=== PATIENT | female | born 1960 | race Caucasian/White ===

== ENCOUNTER 2023-05-28 13:47 | Inpatient (IN) | payer OTHER, SELFPAY ==
--- NOTE | 2023-05-28 14:56 | NUR.NOTE ---
Nursing Note: Undated fentanyl patch removed from left arm and discarded into drug disposal container. Fentanyl waste witnessed by day care assistant, Kelly MCDONOUGH.
[2023-05-28] MEDS: Scopolamine 1 MG/3 DAYS PATCH TD (15:22)
[2023-05-28] MEDS: fentaNYL 25 MCG PATCH TD (15:23)
[2023-05-28 15:45] VITALS: BP 79/51; PULSE 76; RESP 14; TEMP 35.9; O2SAT 93
[2023-05-28] MEDS: Glycopyrrolate 0.2 MG/1 ML VIAL 0.1 MG IVP ×2 (16:45→21:37)
[2023-05-28] MEDS: Normal Saline Flush 10 ML SYR IVP ×5 (16:46→23:29)
[2023-05-28] MEDS: HYDROmorphone 2 MG/ML SYR IVP ×3 (18:02→22:07)
[2023-05-28] MEDS: LORazepam 2 MG/ML VIAL IV/SC ×3 (19:55→23:16)
[2023-05-28] MEDS: Furosemide 20 MG/2 ML VIAL IVP (21:37)
[2023-05-28] MEDS: MORPHine 4 MG/ML SYR IV/SC (23:30)
[2023-05-29] MEDS: Normal Saline Flush 10 ML SYR IVP ×5 (01:14→19:15)
[2023-05-29] MEDS: MORPHine 4 MG/ML SYR IV/SC ×8 (01:14→23:00)
[2023-05-29] MEDS: LORazepam 2 MG/ML VIAL IV/SC ×5 (02:46→21:18)
[2023-05-29] MEDS: Glycopyrrolate 0.2 MG/1 ML VIAL 0.1 MG IVP ×3 (05:01→19:15)
--- NOTE | 2023-05-29 11:30 | W.PM.HP.N ---
Date of service: 05/28/23 Time of Service: 13:30 Assessment and Plan Assessment and plan (1) THAO (nonalcoholic steatohepatitis): Status: Acute (2) Hospice care patient: Status: Acute (3) Edema: Status: Acute (4) Anxiety: Status: Chronic (5) Confusion: Status: Acute (6) Dying care: Status: Acute Assessment and plan: Ms. Mcleod is a 62 y/o F hospice patient, admitted to [facility] for respite care she will likely remain in hospital thru EOL pain, anxiety, confusion all controlled at time of admission, continue current meds w/IV access preferred d/t refusing/unable to take oral meds at this time - continue fentanyl patches; added hydromorphone for pain - morphine added for anticipated dyspnea 2/2 increased edema d/t liver disease and suspected hepatrorenal involvement, edema likely a sxs of EOL; scopolamine, atropine, glycopyrrolate, hyoscyamine all ordered; furosemide 20mg IVP BID PRN ordered History of Present Illness Narrative: Ms. cMleod is a 62 y/o F hospice patient, admitted to [facility] for respite; hospice diagnosis THAO; over the weekend Shani had increased agitation, confusion, pain and anxiety; she was seen daily by hospice nurses and her sxs were appropriately managed; her son and primary caregiver was unable to care for himself during this time and requires respite. she will be admitted for respite, potentially through the end of her life. pain: currently fentanyl 25mcg patches, w/good effect on pain anxiety: managed w/Ativan and Haldol making very little urine breathing non-labored w/periods of apnea edema, increasing, unable to take Lasix confusion: potentially increased, unable/refusing to take lactulose no PO intake x2 days w/3 days of limited intake prior, w/several days of no oral medications she is on comfort measures Review of Systems Narrative: as per HPI PFSH All Active Problems (Updated 05/29/23 @ 11:36 by Chantell Rubio NP) Dying care (Acute) Confusion (Acute) Anxiety (Chronic) Edema (Acute) Hospice care patient (Acute) THAO (nonalcoholic steatohepatitis) (Acute) Social History Smoking/Tobacco Use Status: Unknown Smoking risk assessment performed?: Yes Housing: house Results Last Vital Signs Temp 96.6 F L 08/07/23 15:45 Pulse 76 05/28/23 15:45 Resp 14 05/28/23 15:45 BP 79/51 L 05/28/23 15:45 Pulse Ox 93 05/28/23 15:45 Time Spent Time spent with Patient: 55-74 minutes Time was spent: preparing to see the patient(eg.review tests), obtaining and/or reviewing separately otained hiistory, ordering medications,tests, procedures, referring, communicating with other health healthcare administrative assistant, counseling the patient (family) and care coordination
--- NOTE | 2023-05-29 12:01 | W.PM.PROGNOT ---
Date of Service Date of service: 05/29/23 Time of Service: 11:30 Assessment and Plan Assessment and plan (1) THAO (nonalcoholic steatohepatitis): Status: Acute (2) Hospice care patient: Status: Acute (3) Edema: Status: Acute (4) Anxiety: Status: Chronic (5) Confusion: Status: Acute (6) Dying care: Status: Acute Assessment and plan: Ms. Mcleod is a 62 y/o F hospice patient, admitted to [facility] initially for respite care but appears to be actively dying and will transition to Symptom management today. Her life expectancy is measured in hours to days. Discussed with her son. She is unresponsive. She has not had anything by mouth for 3 days. Her urinary output is decreasing. She appears to be comfortable. Continue PRN medications for increased respiratory secretions. Continue PRN morphine for pain/dyspnea, nursing reports MS working well. She will remain on hospice symptom management for end of life care. Hospice will continue to follow. Subjective Subjective Interval history since last seen: Shani was seen in her hospital room with he son, Andres present. She is unresponsive. She appears to be resting comfortably. Andres reports no PO intake since Sunday, currently day #3 without food or drink. Staff report that she appears comfortable. They are giving PRN medications for increased respiratory secretions. Morphine appears to be working well for pain and dyspnea. Her respirations are snoring. Her urinary output is decreased. Discussed with her son, her life expectancy is measured in hours to days. She will remain at [facility] until she dies. He is concerned about paying for arrangements. CM to assist. Exam Narrative Exam Narrative: General: Middle aged, well-nourished female, laying in bed, unresponsive. Skin is jaundiced. HEENT: normocephalic, atraumatic, eyes closed, mm dry. Cardiovascular: heart sounds regular. respiratory: snoring respirations, irregular. Lungs with rhonchi throughout. GI: +BS, abd soft. Extremities: cool to touch, edema/3rd spacing to all 4 extremities. Scattered areas of ecchymosis to BUEs. Venous stasis skin changes to BLEs. Objective Last Vital Signs Temp 35.9 C L 05/28/23 15:45 Pulse 76 05/28/23 15:45 Resp 14 05/28/23 15:45 BP 79/51 L 05/28/23 15:45 Pulse Ox 93 05/28/23 15:45 Time Spent with Patient Time Spent with Patient: 25-34 minutes Time was spent: preparing to see the patient(eg.review tests), obtaining and/or reviewing separately otained hiistory, referring, communicating with other health child caregiver private home and counseling the patient (family)
--- NOTE | 2023-05-29 12:21 | CMPROGNOTE_ITS ---
Date of service: 05/29/23 Time of Service: 12:21 Care Management Progress Note Progress Note Text Progress Note Text: S/O: CM met with Andres, Shani's son, in the room with Shani, who is unresponsive, and appears comfortable. Andres expressed concern with paying for his mother's , as well as outstanding medical bills. CM provided information regarding support from the state, although the determination of eligibility must happen after a person has passed. Andres stated that he is working with [facility], who is willing to work out a payment plan with him. Andres also stated that he has a gofundme in place to help with the cost. CM discussed the past medical bills with Andres, suggesting that he ask if the facilities have a forgiveness program for medical debt for a loved one. Andres stated that he will look into this. CM encouraged Andres to take care of himself during this difficult time. He stated that he will likely go home this evening, but wants staff to call him with any change. He is very supportive of his mother, and wants to honor her wishes, and be with her as much as possible at the end of her life. CM will continue to follow. A: Shani is a 62 year old female admitted to [facility] on hospice symptom manag ement for THAO. P: Shani will likely remain at [facility] for end of life care, as her son is unable to continue to care for her at home. Hospice providers will be following her and managing her care. Andres is working with [facility] for Shani's final arrangements. CM will continue to support Shani and her family during this difficult time.
--- NOTE | 2023-05-29 14:59 | CHAPLAIN ---
Shani is a hospice patient who was admitted for symptom management. She is unresponsive and will likely stay here through the end of her life. Her son Andres is with her. He told me he plans to stay here, and some other family members may visit. They are from [place], [place]. Shani appears comfortable. Andres said he was told that his mom has hours to days to live. I let him know that solution manager support is always available.
--- NOTE | 2023-05-29 16:01 | PHA.REVIEW2 ---
Pharmacy Admission Review Admission Clinical Review Admission Pharmacy Review: (Updated 05/29/23 @ 11:36 by Chantell Rubio NP) Dying care (Acute) Confusion (Acute) Edema (Acute) Hospice care patient (Acute) THAO (nonalcoholic steatohepatitis) (Acute) Resuscitation Status DNR/DNI Height 5 ft 5 in Weight 280 kg Comments Comments/Follow Ups: Hospice symptom managment. Watch for med changes. Pharmacy Admission Review Renal Dosing Medications needing adjustments: N/A Anticoagulation DVT Prophylaxis: N/A Therapeutic Anticoagulation: N/A Opiate Usage Evaluate Pain Scale/Pains Meds: Reviewed Scheduled Bowel Reg ordered if on Opiates?: No (has PRN meds ordered) Relevant Labs Electrolytes, C-Reactive P, ESR: N/A DM Control DM Control: N/A Cardiac Review BP, HR, EF%: N/A QTc Review QTc: N/A IV to PO Switch IV Medications: Reviewed Home Meds Home Med List reviewed: N/A Current Meds Current Medication Order Review: Intervened (Two PRN IV opioids ordered, asked provider if they had a preference. Per nursing the morphine was more helpful than the hydromorphone for her breathing. Hospice provider d/c'd hydromorphone) Comments Comments/Follow Ups: Hospice symptom managment. Watch for med changes.
[2023-05-30] MEDS: Normal Saline Flush 10 ML SYR IVP (00:10)
[2023-05-30] MEDS: MORPHine 4 MG/ML SYR IV/SC (00:14)
--- NOTE | 2023-05-30 06:27 | NUR.NOTE ---
Nursing Note: RN remained in room with pt throughout shift as family was unable to be present. Pt took last breath just before 0545. Notified CC Rosy Castillo RN. Auscultated lungs for full minute. No audible heart or lung sounds present. No carotid pulse palpable. CC auscultated to confirm time of . Called next of kin, son Andres Yanez and notified of . Removed PIV, lo, scopalamine patch, and fentanyl patch. Patches disposed in pharmacy black box. Witnessed by Rosy Castillo RN, CC. Post mortem hygiene care performed. Son arrived to hospital around 0600. Informed of details of passing and offered support. Allowed son privacy to remain with mother and instructed to use call light if he had any needs, questions, or concerns.
[2023-05-30] MEDS: Patch Removal 1 EACH TD (06:58)
--- NOTE | 2023-05-30 09:05 | W.PM.DDS ---
Date of service: 05/30/23 Time of Service: 05:45 Discharge Plan Disposition Patient Disposition: Discharge Details Reason For Visit: Nonalcoholic Steatohepatitis Admit Date/Time: 05/28/23 13:47 Admit Provider: Kacy Lewis Attending Provider: Kacy Lewis Primary Care Provider: Kacy Lewis Hospital Course Hospital Course: Shani was a 62 year old female, on hospice for THAO, who was admitted to [facility] for hospice Respite initially then changed to Symptom management when her medical needs increased and she required daily medication changes. She had not eaten x2 days at home prior to her admission. She had increased agitation, confusion, pain and anxiety at home. Her symptoms were well managed and she peacefully today, 05/30/23 at 05:45 am. Discharge Data Cause of : Nonalcoholic fatty liver disease without nonalcoholic steatohepatitis (THAO) Discharge Date/Time-TO BE ENTERED AT DEPARTURE: 05/30/23 05:45 Discharge Sum: Prov Provider Consults: 05/28/23 13:42 Center Manager Consult [CONS] Routine Consultation Status:: Follow-up needed Clarification:: Manage/follow per spec. Reason for consult:: hospice patient, respite care, EOL Discharge Sum: Diag Contributing Factors (1) THAO (nonalcoholic steatohepatitis): (2) Hospice care patient: (3) Edema: (4) Anxiety: (5) Confusion: (6) Dying care: Discharge Sum: Summary Date and Time Admission Date: 05/28/2308/07/23 13:47 Date of : 05/30/23 Time of : 05:45 Summary Details: Shani was a 62 year old female, on hospice for THAO, who was admitted to [facility] for hospice Respite initially then changed to Symptom management when her son could not longer take care of her at home. She had not eaten x2 days at home prior to her admission. She had increased agitation, confusion, pain and anxiety at home. Her symptoms were well managed and she peacefully today, 05/30/23 at 05:45 am.
--- NOTE | 2023-05-30 11:00 | CMPROGNOTE_ITS ---
Date of service: 05/30/23 Time of Service: 11:01 Care Management Progress Note Progress Note Text Progress Note Text: Shani this morning, peacefully. Her son, Andres, was called in to be with her. Andres chose [facility] for final arrangements; she has transitioned into their care.
== END 2023-05-30 05:45 | disposition expired | DRG 443 ==
PROVIDERS: Admitting Provider Family Medicine; PCP Family Medicine; Visit Provider Family Medicine
DX: K75.81 Nonalcoholic steatohepatitis (NASH) (principal); Z51.5 Encounter for palliative care; R60.0 Localized edema; F41.9 Anxiety disorder, unspecified; R41.0 Disorientation, unspecified
CPT/HCPCS: J1170; J1941; J2060; J2270; J3490